=== PATIENT | female | born 1960 | race Caucasian/White ===

== ENCOUNTER 2021-08-11 22:40 | Emergency (ER) | payer OTHER ==
[~2021-08-11 22:40] MED LIST: ASPIRIN EC81 MG PO; ATORVASTATIN CA40 MG PO; BETAPACE 80MG T80 MG PO; CYCLOBENZAPRINE5 MG PO; ELIQUIS 5 MG TAB5 MG PO; GABAPENTIN400 MG PO; ISOSORBIDE MON120 MG PO; LEXAPRO20 MG PO; NITROSTAT0.4 MG SL; OXYCONTIN60 MG PO; PLAVIX 75 MG TA75 MG PO; SYNTHROID25 MCG PO; TOUJEO MAX300 UNIT/1 SQ; ZANTAC150 MG PO
[2021-08-12 00:58] LABS: HEMOGLOBIN 13.8 gm/dl (12.3-15.3); RED BLOOD COUNT 4.6 M/UL (4.00-5.10); WHITE BLOOD COUNT 6.8 K/UL (4.5-11.0)
== END 2021-08-12 07:03 | disposition home or self-care (01) ==
LOC: ER1 22:40
PROVIDERS: Physician Assistant
DX: R10.84 Generalized abdominal pain (principal); E11.9 Type 2 diabetes mellitus without complications; I10 Essential (primary) hypertension; E78.5 Hyperlipidemia, unspecified; F17.210 Nicotine dependence, cigarettes, uncomplicated; N17.9 Acute kidney failure, unspecified; E86.0 Dehydration; G47.30 Sleep apnea, unspecified; Z95.1 Presence of aortocoronary bypass graft; Z20.822 Contact with and (suspected) exposure to COVID-19
CPT/HCPCS: 36600; 70450; 71045; 80053; 82550; 82553; 82803; 83605; 83690; 84484; 85025; 93005; 99284; U0002